=== PATIENT | male | born 1960 | race African-American/Black ===

== ENCOUNTER → 2021-04-23 | Outpatient (CLI) | payer BC ==
--- NOTE | 2021-04-24 08:10 | CARD ---
MR#: [id number] Date of Study: 04/23/2021 Ordering Physician: STEVAN DE LEON, Referring Physician: STEVAN DE LEON, Tech: Tonny Coley [facility] APPROVED REPORT EXAM: Two-dimensional and M-mode echocardiogram with Doppler and color Doppler. Other Information Quality : GoodHR: 82bpm Rhythm : NSR INDICATION Murmur Echo Enhancing Agent Agent/Amount Used: Lumason mL RISK FACTORS Hypertension Hyperlipidemia 2D DIMENSIONS Left Atrium(2D)3.7 (1.6-4.0cm)IVSd1.3 (0.7-1.1cm) Aortic Root(2D)3.3 (2.0-3.7cm)LVDd4.8 (3.9-5.9cm) LVOT Diameter2.0 (1.8-2.4cm)PWd1.3 (0.7-1.1cm) LA Pgvugk89 (18-58mL)LVDs3.2 (2.5-4.0cm) FS (%) 33.0 %SV65.8 ml LVEF(%)61.4 (>50%) Aortic Valve AoV Peak Watson.189.4cm/sAoV VTI34.7cm AO Peak GR.14.4mmHgLVOT Peak Watson.120.3cm/s LVOT VTI 24.38cmAO Mean GR.8mmHg LINDEN (VMAX)1.12rk6DEQ (VTI)2.22cm2 Mitral Valve MV E Juiobjnn52.8cm/sMV DECEL [id number] MV A Xzhefvcl30.6cm/sMV E Mean Gr.2mmHg MV LRM39fqM/A Ratio0.9 MVA (PHT)3.68cm2 TDI E/Lateral E'8.0E/Medial E'9.6 Tricuspid Valve TR P. Ohkrictf326kn/sTR Peak Gr.18mmHg Pulmonary Vein S1 Ztocfpic84.8cm/sD2 Asdxguoz17.6cm/s LEFT VENTRICLE The left ventricle is normal size. There is mild concentric left ventricular hypertrophy. The left ve ntricular systolic function is normal. The Ejection Fraction is 60% There is normal LV segmental wall motion. Transmitral Doppler flow pattern is Grade I-abnormal relaxation pattern. No left ventricle t hrombus noted on this study. There is no ventricular septal defect visualized. There is no left ventr icular aneurysm. There is no mass noted in the left ventricle. RIGHT VENTRICLE The right ventricle is normal size. There is normal right ventricular wall thickness. The right ventr icular systolic function is normal. ATRIA The left atrium size is normal. The right atrium size is normal. The interatrial septum is intact wit h no evidence for an atrial septal defect or patent foramen ovale as noted on 2-D or Doppler imaging. AORTIC VALVE The aortic valve is calcified but opens well. Doppler and Color Flow revealed no significant aortic r egurgitation. There is no significant aortic valvular stenosis. There is no aortic valvular vegetatio n. MITRAL VALVE The mitral valve is normal in structure and function. There is no evidence of mitral valve prolapse. There is no mitral valve stenosis. Doppler and Color Flow revealed no mitral valve regurgitation note d. TRICUSPID VALVE The tricuspid valve is normal in structure and function. Doppler and Color Flow revealed trace to mil d tricuspid regurgitation. There is no tricuspid valve prolapse or vegetation. There is no tricuspid valve stenosis. PULMONIC VALVE The pulmonary valve is normal in structure and function. Doppler and Color Flow revealed no pulmonic valvular regurgitation. There is no pulmonic valvular stenosis. GREAT VESSELS The aortic root is normal in size. The ascending aorta is normal in size. The pulmonary artery is nor mal. The IVC is normal in size and collapses >50% with inspiration. PERICARDIAL EFFUSION There is no pleural effusion. There is no evidence of significant pericardial effusion. Critical Notification Critical Value: No <Conclusion> The left ventricular systolic function is normal. The Ejection Fraction is 60% There is normal LV segmental wall motion. Transmitral Doppler flow pattern is Grade I-abnormal relaxation pattern. Trace to mild tricuspid regurgitation. There is no evidence of significant pericardial effusion. Signed by : Trav Johnson, Electronically Approved : 04/24/2021 08:10:19
== END ==
LOC: ECHO 09:52
PROVIDERS: ATTEND Physician Assistant
DX: I08.2 Rheumatic disorders of both aortic and tricuspid valves (principal); R01.1 Cardiac murmur, unspecified
CPT/HCPCS: 93306; C8929